=== PATIENT | female | born 1990 | race Caucasian/White ===

== ENCOUNTER 2024-02-04 08:54 | Emergency (ER) | payer SELFPAY ==
[2024-02-04] VITALS (14 sets, daily range): BP systolic 100–147; BP diastolic 46–111
[~2024-02-04] VITALS: Ht 175.3 cm; Wt 52.2 kg
[2024-02-04] MEDS ORDERED: SODIUM CHLORIDE 0.9% 1,000 ML IV ONE ×2 (09:25→10:20)
[2024-02-04] MEDS ORDERED: KETOROLAC TROMETHAMINE 30 MG/ML SDV IV ONE (09:25)
[2024-02-04] MEDS ORDERED: ONDANSETRON HCl 4 MG/2 ML SDV IV ONE (09:25)
[2024-02-04 09:35] LABS: BASO% 0.5 % (0-3); HEMATOCRIT 38.5 % (37.0-47.0); HEMOGLOBIN 12.6 g/dl (12.0-16.0); IMMATURE GRANULOCYTES 0.7 % (0.0-5.0); MEAN CELL VOLUME 91.7 fL CALC (80.0-100.0); MEAN CORPUSCULAR HGB CONC 32.7 g/dL CAL (32.0-36.0); NEUT# 9.56 thou/uL (2.00-7.15); NEUT% 88.8 % (42-76); RED BLOOD COUNT 4.2 mill/uL (4.20-5.60); RED CELL DISTRI WIDTH 11.7 % (11.5-15.5)
[2024-02-04 09:45] LABS: ALBUMIN 4.4 g/dL (3.2-5.0); BILIRUBIN, TOTAL 0.5 mg/dL (0.02-1.3); CREATININE 0.8 mg/dL (0.5-1.0); POTASSIUM 3.7 mmol/l (3.5-5.1); TOTAL PROTEIN 6.9 g/dL (6.3-8.2)
[2024-02-04 11:05] LABS: URINE BILIRUBIN - DIPSTICK Negative (NEGATIVE); URINE BLOOD DIPSTICK Negative (NEGATIVE); URINE COLOR Yellow; URINE GLUCOSE - DIPSTICK Negative (NEGATIVE); URINE KETONE 40 mg/dL (NEGATIVE); URINE LEUK ESTERASE Negative (NEGATIVE); URINE NITRITE - DIPSTICK Negative (Negative); URINE PH 5.5 (4.5-8.0); URINE PROTEIN - DIPSTICK Negative (NEG-TRACE); URINE SPECIFIC GRAVITY >=1.030; URINE UROBILINOGEN - DIPSTICK 0.2 E.U./dL (0.2)
[2024-02-04] MEDS ORDERED: NAPROXEN 250 MG/TAB PO ONE (15:35)
[2024-02-04] MEDS ORDERED: traMADol HCL 50 MG/TAB PO ONE (15:35)
[2024-02-04] MEDS ORDERED: ACETAMINOPHEN 500 MG TAB PO ONE (15:35)
[2024-02-04] MEDS ORDERED: NAPROXEN375 MG PO (15:35)
== END 2024-02-04 16:16 | disposition home or self-care (01) | DRG 392 ==
LOC: ED 08:54
PROVIDERS: Family Medicine
DX: R10.13 Epigastric pain (principal); R10.31 Right lower quadrant pain; I34.1 Nonrheumatic mitral (valve) prolapse